=== PATIENT | female | born 1995 | race Caucasian/White ===

== ENCOUNTER 2021-03-28 22:46 | Emergency (ER) | payer SELFPAY ==
[~2021-03-28] VITALS: Ht 167.6 cm; Wt 91.0 kg
[2021-03-28] MEDS ORDERED: ACETAMINOPHEN 325MG TABLET PO STA (23:07)
[2021-03-29] MEDS ORDERED: ACETAMINOPHEN 325MG TABLET PO NR (05:00)
[2021-03-29] MEDS ORDERED: IBUP-2028 MT (05:53)
[2021-03-29 06:35] VITALS: BP 112/76
== END 2021-03-29 06:37 | disposition home or self-care (01) ==
LOC: ER 22:46
DX: S09.8XXA Other specified injuries of head, initial encounter (principal); W01.0XXA Fall on same level from slipping, tripping and stumbling without subsequent striking against object, initial encounter; Y93.89 Activity, other specified; Y92.89 Other specified places as the place of occurrence of the external cause; Y99.8 Other external cause status
CPT/HCPCS: 81025; 99284